=== PATIENT | female | born 1945 | race Asian ===

== ENCOUNTER 2016-11-18 08:03 | Day surgery (SDC) | payer OTHER ==
[~2016-11-18] VITALS: Ht 134.6 cm; Wt 40.4 kg
[~2016-11-18 08:03] MED LIST: ASPI81TA3 PO; ATOR10TA65 PO; FAMO-95 PO; LEVO100T87 PO
[2016-11-18 09:30] VITALS: Ht 134.6 cm; Wt 40.4 kg
[2016-11-18 09:43] VITALS: BP 136/90; PULSE 60; RESP 19
--- NOTE | 2016-11-18 10:29 | OPR ---
Date/Time of Note Date/Time of Note DATE: 11/18/16 TIME: 10:26 Operative Report Free Text/Dictation Dr. Renner dictating the operative procedure Procedure colonoscopy Preop diagnosis screening colonoscopy popst diagnosis localized polypoid area in the hepatic flexure After the informed written consent is obtained patient was given 1.5 mg of Versed and 75 mcg of fentanyl as the intravenous anesthesia The patient becomes somnolent Olympus video colonoscope was introduced into the rectum and advanced all the way to the cecum Localized polypoid area noted in the hepatic flexure one biopsy was done Rest of the colon up to the cecum appeared normal The VO2 no additional abnormalities detected Procedure was terminated Recommend it for the pathology report Signed by Dr. Renner please and copy to my office and also to Dr. Farhana Peters in [place] Procedure Date: Nov 18, 2016 LORETTA RENNER MD Nov 18, 2016 10:29
[2016-11-18 10:46] VITALS: BP 112/64; PULSE 58; RESP 18
[2016-11-18] MEDS ORDERED: MIDAZOLAM 1 MG/ML 2 ML INJ ONE (12:10)
[2016-11-18] MEDS ORDERED: FENTAnyl 50 MCG/ML VIAL ONE (12:10)
== END 2016-11-18 11:48 | disposition home or self-care (01) ==
LOC: GIL 08:03
PROVIDERS: ATTEND Internal Medicine Gastroenterology
DX: Z12.11 Encounter for screening for malignant neoplasm of colon (principal); K63.5 Polyp of colon
CPT/HCPCS: 45380; 88305; J2250; J3010; Z7610

== ENCOUNTER 2016-12-31 16:59 | Emergency (ER) | payer SELFPAY ==
[~2016-12-31] VITALS: Ht 149.9 cm; Wt 40.5 kg
[~2016-12-31 16:59] MED LIST changes: -ASPI81TA3 PO; -FAMO-95 PO
[2016-12-31 17:02] VITALS: Ht 149.9 cm; Wt 40.5 kg
== END 2016-12-31 19:02 | disposition left against medical advice (07) ==
LOC: E/R 16:59
DX: Z53.21 Procedure and treatment not carried out due to patient leaving prior to being seen by health care provider (principal)

== ENCOUNTER 2017-01-26 06:31 | Day surgery (SDC) | payer MEDICAID, OTHER ==
[2017-01-25 11:18] VITALS: BMI 20.8
[~2017-01-26] VITALS: Ht 139.7 cm; Wt 39.0 kg
[2017-01-26] VITALS (14 sets, daily range): BP systolic 90–164; BP diastolic 55–93; PULSE 60–81; RESP 12–26; Ht 139.7 cm; Wt 39.0 kg
[~2017-01-26 06:31] MED LIST changes: +CEFAZOLIN 2 GM/50 ML (PMX) 50 ML IVPB SCH; +SOD CHLORIDE 0.9% 1,000 ML IV SCH
[2017-01-26] MEDS ORDERED: LEVO50TA71 PO (07:23)
[2017-01-26] MEDS ORDERED: BUPIVACAINE 0.25% (MPF) 30 ML INJ ONE (09:42)
[2017-01-26] MEDS ORDERED: GLYCOPYRROLATE 0.4 MG INJ ONE (10:00)
[2017-01-26] MEDS ORDERED: CEFAZOLIN 1 GM INJ ONE (10:00)
[2017-01-26] MEDS ORDERED: FENTAnyl 50 MCG/ML VIAL ONE (10:00)
[2017-01-26] MEDS ORDERED: MIDAZOLAM 1 MG/ML 2 ML INJ ONE (10:00)
[2017-01-26] MEDS ORDERED: NEOSTIGMINE 3 MG/3 ML SYRINGE ONE (10:00)
[2017-01-26] MEDS ORDERED: ROCURONIUM 50 MG INJ ONE (10:00)
[2017-01-26] MEDS ORDERED: PROPOFOL 20 ML ONE (10:00)
[2017-01-26] MEDS ORDERED: DEXAMETHASONE 4 MG/ML 1 ML INJ ONE (10:01)
[2017-01-26] MEDS ORDERED: ONDANSETRON 4 MG INJ ONE (10:01)
[2017-01-26] MEDS ORDERED: LABETALOL HCL 20MG INJ IV PRN (10:30)
[2017-01-26] MEDS ORDERED: EPHEDrine SULFATE 50 MG/5 ML SYG IV PRN (10:30)
[2017-01-26] MEDS ORDERED: MEPERIDINE 25 MG INJ IV PRN (10:30)
[2017-01-26] MEDS ORDERED: IPRATROPIUM (NEB) 0.5 MG/2.5 ML AMP HHN PRN (10:30)
[2017-01-26] MEDS ORDERED: MIDAZOLAM 1 MG/ML 2 ML INJ IV PRN (10:30)
[2017-01-26] MEDS ORDERED: DIPHENHYDRAMINE 50 MG INJ IV PRN (10:30)
[2017-01-26] MEDS ORDERED: hydrALAzine 20 MG INJ IV PRN (10:30)
[2017-01-26] MEDS ORDERED: ONDANSETRON 4 MG INJ IV PRN (10:30)
[2017-01-26] MEDS ORDERED: FENTAnyl 50 MCG/ML VIAL IV PRN ×3 (10:30)
[2017-01-26] MEDS ORDERED: TRIMETHOBENZAMIDE 100 MG/ML VIAL IM PRN (10:30)
[2017-01-26] MEDS ORDERED: OXYCODONE/ACETAMINOPHEN (5/325) TAB PO PRN ×2 (10:30)
[2017-01-26] MEDS ORDERED: HYDROmorphONE (0.2 MG/ML) 10ML SYG IV PRN ×3 (10:30)
[2017-01-26] MEDS ORDERED: ALBUTEROL 0.083% (NEB) 2.5 MG/3 ML AMP HHN PRN (10:30)
--- NOTE | 2017-01-26 10:48 | OPR ---
Date/Time of Note Date/Time of Note DATE: 01/26/17 TIME: 10:44 Operative Report Procedure Date: Jan 26, 2017 Preoperative Diagnosis symptomatic gallstones Postoperative Diagnosis same Operation Performed 1. laparoscopic cholecystectomy 2. therapeutic injection of subcutaneous marcaine cpt code 27785 Anesthesia Type: general Estimated Blood Loss: 0 - 10 ml's Specimens gallbladder Grafts/Implants: none Complications: no Indications This is a 71-year-old female with symptomatic gallstones. She required surgical excision of her gallbladder. Risks alternatives benefits and personnel were discussed the patient and daughter. They expressed understanding consents to the operation. Procedure Description Patient is taken to the OR and prepped and draped in usual sterile fashion. Surgical timeout is performed. IV antibiotics given. Infraumbilical transverse incision is made with a 15 blade. Dissection cautery was carried down to the fascia. The fascia was grasped with Imlay's and divided with curved Amos scissors. Balloon dot trochar was introduced under direct visualization through the infraumbilical incision. Pneumoperitoneum is established. Midepigastric 12 mm optical trocar was placed under direct visualization. Right upper quadrant right upper flank 5 mm optical trochars were placed under direct visualization. Partial inspection there are some adhesions to the gallbladder which were taken down bluntly. The gallbladder was grasped the fundus and retracted in a lateral and outward direction. Lateral dissection was started with cautery. The cystic duct was identified with careful dissection. The cystic artery was also identified with careful dissection. The cystic duct and cystic artery were divided using 3 clips proximal 1 clip distal and cut with scissors. The gallbladder was taken of the gallbladder bed. There is good hemostasis. The gallbladder was retrieved using an Endo Catch bag. Ports removed under direct visualization. Infraumbilical fascial incision was closed with a [id number] 0 Vicryl suture. The skin was closed using skin sophia. Therapeutic subcutaneous Marcaine was injected throughout the port sites. Dry dressings were applied. Derrick BARAJAS Jan 26, 2017 10:48
[2017-01-26] MEDS ORDERED: HYDROCODONE/APAP (5/325) TAB PO ONE (11:00)
== END 2017-01-26 14:35 | disposition home or self-care (01) ==
LOC: SDS 06:31
PROVIDERS: ATTEND Surgery
DX: K80.10 Calculus of gallbladder with chronic cholecystitis without obstruction (principal); E78.5 Hyperlipidemia, unspecified; E03.9 Hypothyroidism, unspecified
CPT/HCPCS: 47562; 88304; J0360; J0690; J1100; J1170; J2250; J2405; J2710; J3010; Z7512; Z7610

== ENCOUNTER 2017-05-04 07:01 | Day surgery (SDC) | payer OTHER ==
[2017-05-04] VITALS (11 sets, daily range): BP systolic 94–133; BP diastolic 59–74; PULSE 56–68; RESP 14–20; Ht 142.2 cm; Wt 39.9 kg
[~2017-05-04] VITALS: Ht 142.2 cm; Wt 39.9 kg
[~2017-05-04 07:01] MED LIST changes: -CEFAZOLIN 2 GM/50 ML (PMX) 50 ML IVPB SCH; -LEVO100T87 PO; +LEVO50TA71 PO
[2017-05-04] MEDS ORDERED: BUPIVACAINE 0.5% (SDV) 30 ML INJ ONE (08:47)
[2017-05-04] MEDS ORDERED: LIDOCAINE 2% (MDV) 20 ML INJ ONE (08:47)
[2017-05-04] MEDS ORDERED: PROPOFOL 20 ML ONE (09:06)
[2017-05-04] MEDS ORDERED: CEFAZOLIN 1 GM INJ ONE (09:20)
[2017-05-04] MEDS ORDERED: LIDOCAINE 2% (SDV) 5 ML INJ ONE (09:20)
--- NOTE | 2017-05-04 09:20 | OPR ---
Date/Time of Note Date/Time of Note DATE: 05/04/17 TIME: 09:18 Operative Report Procedure Date: May 04, 2017 Preoperative Diagnosis left arm mass Postoperative Diagnosis left arm mass Operation/Procedure Performed 1. excision of left arm mass 2 cm mass 2 cm incision 2. localized adjacent tissue transfer with the use of skin flaps 4 sq cm defect 3. 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 She requests surgical excision. Risks alternatives benefits and percent were discussed the patient. Patient expresses understanding consents to the operation. Procedure Description Patient taken to the OR and prepped and draped in usual sterile fashion. Surgical timeout was performed. IV antibiotics given. Therapeutic subcutaneous local anesthesia was injected all along the mass. 15 blade was used to make an excision of the mass. Cautery was used to achieve hemostasis. Due to tissue defect localized adjacent tissue transfer with these of skin flaps was performed. Closure was performed by advancing flaps approximation with interrupted 3-0 Vicryl. Dermabond is applied. Derrick BARAJAS May 04, 2017 09:20
[2017-05-04] MEDS ORDERED: FENTAnyl 50 MCG/ML VIAL IV PRN (09:30)
[2017-05-04] MEDS ORDERED: IBUPROFEN 800 MG TAB PO ONE (09:30)
[2017-05-04] MEDS ORDERED: DIPHENHYDRAMINE 50 MG INJ IV PRN (09:30)
[2017-05-04] MEDS ORDERED: MEPERIDINE 25 MG INJ IV PRN (09:30)
[2017-05-04] MEDS ORDERED: ONDANSETRON 4 MG INJ IV PRN (09:30)
[2017-05-04] MEDS ORDERED: CEFAZOLIN 1 GM/50 ML (PMX) 50 ML IVPB SCH (10:30)
--- NOTE | 2017-05-04 16:51 | RADRPT ---
PROCEDURE: XR Chest. CLINICAL INDICATION: Preop TECHNIQUE: AP Portable chest. COMPARISON: [place] 08/04/2015; CT 08/03/2015; CR CHEST 08/03/2015 FINDINGS: The cardiomediastinal silhouette is normal.The aortic arch is calcified. No focal consolidation, ple ural effusion or pneumothorax is seen. The osseous structures are intact. IMPRESSION: No radiographic evidence of acute cardiopulmonary disease. Aortic atherosclerosis. Physician Rossi Date Time Electronically viewed and signed by Physician Rossi on 05/04/2017 08:27 CS/
--- NOTE | 2017-05-06 18:50 | RADRPT ---
Vent Rate: 60 bpm RR Interval: 0 msec WI Interval: 132 msec QRS Duration: 60 msec QT Interval: 414 msec QTC Interval: 414 msec P-R-T Ages [place]: 29 - 59 - 60 degrees Normal sinus rhythm Normal ECG Electronically Signed By: Cam Hagen [id number]
== END 2017-05-04 10:50 | disposition home or self-care (01) ==
LOC: SDS 07:01
PROVIDERS: ATTEND Surgery
DX: D17.22 Benign lipomatous neoplasm of skin and subcutaneous tissue of left arm (principal); E03.9 Hypothyroidism, unspecified
CPT/HCPCS: 14020; 71010; 88307; 93005; J0690; Z7512; Z7610